=== PATIENT | female | born 1945 | race Caucasian/White ===

== ENCOUNTER 2017-09-03 11:20 | Inpatient (IN) | payer MEDICARE ==
[2017-09-03] VITALS (20 sets, daily range): BP systolic 101–133; BP diastolic 55–81
[~2017-09-03] VITALS: Ht 149.9 cm; Wt 43.1 kg
[2017-09-03] MEDS ORDERED: LIDOcaine 1% (10mg/ml) 2ml vial ONE (12:00)
[2017-09-03] MEDS: ringers solution, lacted 1,000 ML IV SCH ×2 (12:27→22:14)
[2017-09-03] MEDS ORDERED: vancomycin/NS 1 GM ADD-VANTAGE 250 ML X 1 DOSE IV ONE (12:55)
[2017-09-03] MEDS ORDERED: ceFAZolin 2gm in dextrose, iso 100 ML IV ONE (12:55)
[2017-09-03 13:41] LABS: PARTIAL THROMBOPLASTIN TIME 26 SECONDS (22-32); PROTHROMBIN TIME 10.1 SECONDS (9.0-12.0)
[2017-09-03 13:42] LABS: BASOPHILS % (AUTO) 0.4 % (0-1); EOSINOPHILS % (AUTO) 0.1 % (0-6); HEMATOCRIT 34.5 % (35.0-45.0); HEMOGLOBIN 11.6 g/dl (12.0-16.0); LYMPHOCYTES # (AUTO) 1.4 X10'3 (1.1-4.8); LYMPHOCYTES % (AUTO) 24.7 % (21-51); MEAN CORPUSCULAR HEMOGLOBIN 33.2 PG (27.0-31.0); MEAN CORPUSCULAR HGB CONC 33.6 % (33.0-36.5); MEAN CORPUSCULAR VOLUME 98.8 FL (78-98); MEAN PLATELET VOLUME 6.8 FL (7.4-10.4); MONOCYTES # (AUTO) 0.3 X10'3 (0-0.9); MONOCYTES % (AUTO) 5.7 % (2-12); NEUTROPHILS # (AUTO) 3.8 X10'3 (1.8-7.7); NEUTROPHILS % (AUTO) 69.1 % (42-75); PLATELET COUNT 430 X10'3 (140-440); RED BLOOD COUNT 3.49 X10'6 (4.20-5.60); RED CELL DISTRIBUTION WIDTH 15.3 % (11.5-14.5); WHITE BLOOD COUNT 5.5 X10'3 (4.5-11.0)
[2017-09-03 13:49] LABS: ALANINE AMINOTRANSFERASE 12 U/L (12-78); ALBUMIN 2.5 G/DL (3.4-5.0); ALBUMIN/GLOBULIN RATIO 0.8 (1.1-1.5); ALKALINE PHOSPHATASE 107 IU/L (46-116); ANION GAP 9 (8-16); ASPARTATE AMINO TRANSFERASE 21 U/L (10-37); BILIRUBIN,TOTAL 0.8 MG/DL (0.1-1.0); BLOOD UREA NITROGEN 12 MG/DL (7-18); BUN/CREATININE RATIO 21.8 (6.6-38.0); CALCIUM 8.6 MG/DL (8.5-10.1); CHLORIDE 107 MMOL/L (99-107); CREATININE 0.55 MG/DL (0.40-0.90); GLUCOSE 86 MG/DL (70-104); POTASSIUM 3.7 MMOL/L (3.5-5.1); SODIUM 144 MMOL/L (135-145); TOTAL PROTEIN 5.8 G/DL (6.4-8.2); eGFR > 90 ML/MIN
[2017-09-03] MEDS ORDERED: ALB0.5UD IH (14:22)
[2017-09-03] MEDS ORDERED: TIOT18CA3 INH (14:22)
[2017-09-03] MEDS ORDERED: HYDR-565 PO (14:22)
[2017-09-03] MEDS ORDERED: DOCU100C41 PO (14:24)
[2017-09-03] MEDS ORDERED: BACL10TA PO (14:24)
[2017-09-03] MEDS ORDERED: BUDE10.2 INH (14:25)
[2017-09-03] MEDS ORDERED: glycopyrrolate 0.2mg/ml inj ONE ×2 (14:32→17:07)
[2017-09-03] MEDS ORDERED: sevoflurane 250ml liquid IH ONE (14:32)
[2017-09-03] MEDS ORDERED: fentaNYL /PF 50mcg/ml 5ml ampule ONE (14:34)
[2017-09-03] MEDS ORDERED: ringers solution, lacted 1,000 ML IV SCH (16:13)
[2017-09-03] MEDS ORDERED: fentaNYL/PF 50MCG/1 ML 2ML syringe IV PRN (16:15)
[2017-09-03] MEDS ORDERED: morphine 4 MG/ML inj SYRINge IV PRN (16:15)
[2017-09-03] MEDS ORDERED: ondansetron/PF 4mg/2ml inj IV PRN ×2 (16:15→16:55)
[2017-09-03] MEDS ORDERED: ROPIVAcaine 0.5% (5mg/ml) 30ml vial ONE (16:35)
[2017-09-03] MEDS ORDERED: fentaNYL/PF 50MCG/1 ML 2ML syringe ONE (16:49)
[2017-09-03] MEDS ORDERED: CADD PCA waste documentation MC PRN (16:55)
[2017-09-03] MEDS ORDERED: bisacodyl 10mg suppository rectal RC PRN (16:55)
[2017-09-03] MEDS ORDERED: acetaminophen 325mg tablet PO PRN (16:55)
[2017-09-03] MEDS ORDERED: ipratropium 0.5 MG/2.5ML nebule IH PRN (16:55)
[2017-09-03] MEDS ORDERED: metoclopramide 5 mg/ml inj IV PRN (16:55)
[2017-09-03] MEDS ORDERED: magnesium hydroxide 30ml (MOM) UD suspension PO PRN (16:55)
[2017-09-03] MEDS ORDERED: HYDROcodone/acetaminophen 10/325mg tab PO PRN (16:55)
[2017-09-03] MEDS ORDERED: naloxone 0.4 mg/ml inj IV PRN (16:55)
[2017-09-03] MEDS ORDERED: albuterol 2.5 MG/3 ML nebule NEB PRN (16:55)
[2017-09-03] MEDS ORDERED: mag hydrox/Alum hydrox/simeth 30ml oral suspension PO PRN (16:55)
[2017-09-03] MEDS ORDERED: diphenhydrAMINE 25mg capsule PO PRN ×2 (16:55)
[2017-09-03] MEDS: HYDROmorphone/NS 1 mg/ml CADD 50 ML IV SCH ×4 (17:00→23:00)
[2017-09-03] MEDS ORDERED: LIDOcaine 2% (20mg/ml) 5ml vial ONE (17:07)
[2017-09-03] MEDS ORDERED: ondansetron/PF 4mg/2ml inj ONE (17:07)
[2017-09-03] MEDS ORDERED: rocuronium 10mg/ml inj IV ONE (17:07)
[2017-09-03] MEDS ORDERED: neostigmine methylsulfate 1 MG/ML 10ml vial ONE (17:07)
[2017-09-03] MEDS ORDERED: ePHEDrine 50MG/ML INJ. ONE (17:07)
[2017-09-03] MEDS ORDERED: propofol inj 20 ML IV ONE (17:07)
[2017-09-03] MEDS: fentaNYL/PF 50MCG/1 ML 2ML syringe IV PRN ×2 (17:53→22:15)
[2017-09-03] MEDS ORDERED: vancomycin/NS 1 GM ADD-VANTAGE 250 ML IV SCH (20:00)
[2017-09-03] MEDS: potassium cl 20mEq in 1/2 NS 1,000 ML IV SCH (20:00)
[2017-09-03] MEDS: docusate sod 100mg capsule PO SCH (20:00)
[2017-09-03] MEDS ORDERED: BUDE10.22 INH (20:58)
[2017-09-03] MEDS ORDERED: sennosides 8.6mg tablet PO SCH (21:00)
[2017-09-03] MEDS: baclofen 10mg tablet PO SCH (22:25)
[2017-09-03] MEDS: ascorbic acid 500mg tablet PO SCH (22:25)
[2017-09-03] MEDS: sennosides/docusate sodium tablet PO SCH (22:25)
[2017-09-04] MEDS: potassium cl 20mEq in 1/2 NS 1,000 ML IV SCH ×3 (00:51→20:43)
[2017-09-04] MEDS: HYDROmorphone/NS 1 mg/ml CADD 50 ML IV SCH ×12 (01:00→23:00)
[2017-09-04 02:00] VITALS: BP 102/52
[2017-09-04 05:00] VITALS: BP 112/50
[2017-09-04] MEDS ORDERED: famotidine 20mg tablet PO ONE (05:30)
[2017-09-04 06:22] LABS: BASOPHILS % (AUTO) 0.5 % (0-1); EOSINOPHILS % (AUTO) 0.2 % (0-6); HEMATOCRIT 30.7 % (35.0-45.0); HEMOGLOBIN 10.3 g/dl (12.0-16.0); LYMPHOCYTES # (AUTO) 1.4 X10'3 (1.1-4.8); LYMPHOCYTES % (AUTO) 22.6 % (21-51); MEAN CORPUSCULAR HEMOGLOBIN 32.9 PG (27.0-31.0); MEAN CORPUSCULAR HGB CONC 33.4 % (33.0-36.5); MEAN CORPUSCULAR VOLUME 98.6 FL (78-98); MEAN PLATELET VOLUME 7.1 FL (7.4-10.4); MONOCYTES # (AUTO) 0.4 X10'3 (0-0.9); MONOCYTES % (AUTO) 6.1 % (2-12); NEUTROPHILS # (AUTO) 4.2 X10'3 (1.8-7.7); NEUTROPHILS % (AUTO) 70.6 % (42-75); PLATELET COUNT 363 X10'3 (140-440); RED BLOOD COUNT 3.12 X10'6 (4.20-5.60); RED CELL DISTRIBUTION WIDTH 14.8 % (11.5-14.5)
[2017-09-04 07:25] LABS: ANION GAP 7 (8-16); CHLORIDE 106 MMOL/L (99-107); POTASSIUM 3.9 MMOL/L (3.5-5.1); SODIUM 139 MMOL/L (135-145); TOTAL CARBON DIOXIDE 26.5 MMOL/L (24-32)
[2017-09-04] MEDS: ceFAZolin 1GM/D5W- ADD-VANTAGE 50 ML IV SCH ×2 (07:45)
[2017-09-04] MEDS: multivitamins, therapeutics tablet PO SCH (07:46)
[2017-09-04] MEDS: ascorbic acid 500mg tablet PO SCH ×2 (07:46→19:16)
[2017-09-04] MEDS: enoxaparin 40mg/0.4ml syringe SQ SCH (07:46)
[2017-09-04] MEDS: docusate sod 100mg capsule PO SCH ×2 (07:46→19:16)
[2017-09-04] MEDS: sennosides/docusate sodium tablet PO SCH ×2 (07:46→19:16)
[2017-09-04 10:00] VITALS: BP 102/50
[2017-09-04 14:00] VITALS: BP 96/42
[2017-09-04 18:00] VITALS: BP 103/47
[2017-09-04] MEDS: baclofen 10mg tablet PO SCH (20:43)
[2017-09-04 22:00] VITALS: BP 97/48
[2017-09-05] VITALS (7 sets, daily range): BP systolic 88–105; BP diastolic 42–49
[2017-09-05] MEDS: HYDROmorphone/NS 1 mg/ml CADD 50 ML IV SCH ×4 (01:00→07:00)
[2017-09-05] MEDS: potassium cl 20mEq in 1/2 NS 1,000 ML IV SCH (04:05)
[2017-09-05 06:26] LABS: BASOPHILS % (AUTO) 0.3 % (0-1); EOSINOPHILS % (AUTO) 0.4 % (0-6); HEMATOCRIT 27.8 % (35.0-45.0); HEMOGLOBIN 9.4 g/dl (12.0-16.0); LYMPHOCYTES # (AUTO) 1.4 X10'3 (1.1-4.8); LYMPHOCYTES % (AUTO) 24.6 % (21-51); MEAN CORPUSCULAR HEMOGLOBIN 33.1 PG (27.0-31.0); MEAN CORPUSCULAR HGB CONC 33.7 % (33.0-36.5); MEAN CORPUSCULAR VOLUME 98.2 FL (78-98); MONOCYTES # (AUTO) 0.4 X10'3 (0-0.9); MONOCYTES % (AUTO) 7.7 % (2-12); NEUTROPHILS # (AUTO) 3.7 X10'3 (1.8-7.7); PLATELET COUNT 302 X10'3 (140-440); RED BLOOD COUNT 2.84 X10'6 (4.20-5.60); RED CELL DISTRIBUTION WIDTH 15.2 % (11.5-14.5); WHITE BLOOD COUNT 5.6 X10'3 (4.5-11.0)
[2017-09-05] MEDS: ascorbic acid 500mg tablet PO SCH ×2 (08:12→20:16)
[2017-09-05] MEDS: sennosides/docusate sodium tablet PO SCH ×2 (08:13→20:00)
[2017-09-05] MEDS: docusate sod 100mg capsule PO SCH ×2 (08:13→20:00)
[2017-09-05] MEDS: multivitamins, therapeutics tablet PO SCH (08:13)
[2017-09-05] MEDS: enoxaparin 40mg/0.4ml syringe SQ SCH (08:14)
[2017-09-05] MEDS ORDERED: ENOX40DI11 SQ (10:01)
[2017-09-05 15:10] LABS: C DIFF ANTIGEN NEGATIVE (NEGATIVE); C DIFF SPECIMEN=DIARRHEA? ACCEPTABLE; C DIFFICILE TOXINS A&B NEGATIVE (Neg)
[2017-09-05] MEDS: HYDROcodone/acetaminophen 10/325mg tab PO PRN ×2 (17:19→21:23)
[2017-09-05] MEDS: baclofen 10mg tablet PO SCH (20:16)
[2017-09-06 06:00] VITALS: BP 112/62
[2017-09-06 06:08] LABS: BASOPHILS % (AUTO) 0.6 % (0-1); EOSINOPHILS # (AUTO) 0.1 X10'3 (0-0.9); EOSINOPHILS % (AUTO) 1.7 % (0-6); HEMATOCRIT 26.5 % (35.0-45.0); HEMOGLOBIN 9.1 g/dl (12.0-16.0); LYMPHOCYTES # (AUTO) 1.5 X10'3 (1.1-4.8); LYMPHOCYTES % (AUTO) 34.1 % (21-51); MEAN CORPUSCULAR HEMOGLOBIN 33.5 PG (27.0-31.0); MEAN CORPUSCULAR HGB CONC 34.2 % (33.0-36.5); MEAN PLATELET VOLUME 7.3 FL (7.4-10.4); MONOCYTES # (AUTO) 0.4 X10'3 (0-0.9); MONOCYTES % (AUTO) 8.2 % (2-12); NEUTROPHILS # (AUTO) 2.5 X10'3 (1.8-7.7); NEUTROPHILS % (AUTO) 55.4 % (42-75); PLATELET COUNT 307 X10'3 (140-440); RED BLOOD COUNT 2.71 X10'6 (4.20-5.60); RED CELL DISTRIBUTION WIDTH 15.2 % (11.5-14.5); WHITE BLOOD COUNT 4.5 X10'3 (4.5-11.0)
[2017-09-06] MEDS: ascorbic acid 500mg tablet PO SCH (07:11)
[2017-09-06] MEDS: enoxaparin 40mg/0.4ml syringe SQ SCH (07:11)
[2017-09-06] MEDS: multivitamins, therapeutics tablet PO SCH (07:11)
[2017-09-06] MEDS: HYDROcodone/acetaminophen 10/325mg tab PO PRN (07:13)
[2017-09-06] MEDS: docusate sod 100mg capsule PO SCH (07:16)
[2017-09-06] MEDS: sennosides/docusate sodium tablet PO SCH (07:16)
[2017-09-06 10:00] VITALS: BP 105/66
== END 2017-09-06 11:33 | disposition home or self-care (01) | DRG 493 ==
LOC: PAS 11:20 → ORTHO 4S 16:51
PROVIDERS: ADMIT Orthopaedic Surgery; ATTEND Internal Medicine Infectious Disease
PROC: 0LS30ZZ Reposition Right Upper Arm Tendon, Open Approach (ICD-10-PCS; 2017-09-03)
PROC: 0PSC04Z Reposition Right Humeral Head with Internal Fixation Device, Open Approach (ICD-10-PCS; principal; 2017-09-03 14:32)
DX: S42.211A Unspecified displaced fracture of surgical neck of right humerus, initial encounter for closed fracture (principal); D62 Acute posthemorrhagic anemia; J44.9 Chronic obstructive pulmonary disease, unspecified; S46.111A Strain of muscle, fascia and tendon of long head of biceps, right arm, initial encounter; W01.0XXA Fall on same level from slipping, tripping and stumbling without subsequent striking against object, initial encounter; Z88.2 Allergy status to sulfonamides; Z79.51 Long term (current) use of inhaled steroids; Z79.899 Other long term (current) drug therapy; Y92.59 Other trade areas as the place of occurrence of the external cause; Y99.8 Other external cause status; Y93.89 Activity, other specified
CPT/HCPCS: 36415; 71045; 73060; 76000; 80051; 80053; 85025; 85610; 85730; 87070; 87324; 87449; 93005; 94640; 94760; 97110; 97116; 97162; 97530; A4353; A6258; A6449; A7000; C1713; J0690; J1170; J1650; J2001; J2405; J2704; J2710; J2795; J3010; J3370; J3490; J7120